=== PATIENT | female | born 1960 | race Caucasian/White ===

== ENCOUNTER 2018-08-23 17:25 | Emergency (ER) | payer MEDICARE, MEDICAID ==
[~2018-08-23] VITALS: Ht 160 cm; Wt 99.0 kg
[~2018-08-23 17:25] MED LIST: ALBU8.5H8 IH; ASPI-529; BIMA2.5D EACHEYE; BUPR150T16 PO; CLON0.2T PO; DEXL60CA3 PO; FURO80TA87 PO; GABA-532 PO; GLUC1KIT IM; LABE200T5 PO; LANTUS SQ; LEVA15HF4 INH; LEVO5TAB13 PO; METO-292 PO; MOME17SP BOTHNARES; NIFE60TA69 PO; ROSU20TA PO
[2018-08-23 17:52] VITALS: BP 136/79
== END 2018-08-23 19:07 | disposition home or self-care (01) ==
LOC: ER 17:25
DX: S76.811A Strain of other specified muscles, fascia and tendons at thigh level, right thigh, initial encounter (principal); G43.909 Migraine, unspecified, not intractable, without status migrainosus; I12.9 Hypertensive chronic kidney disease with stage 1 through stage 4 chronic kidney disease, or unspecified chronic kidney disease; E11.22 Type 2 diabetes mellitus with diabetic chronic kidney disease; N18.9 Chronic kidney disease, unspecified; Z88.0 Allergy status to penicillin; Z79.82 Long term (current) use of aspirin; Z79.4 Long term (current) use of insulin; Z79.899 Other long term (current) drug therapy; X58.XXXA Exposure to other specified factors, initial encounter; Y93.89 Activity, other specified; Y92.89 Other specified places as the place of occurrence of the external cause; Y99.8 Other external cause status
CPT/HCPCS: 73502; 99284

== ENCOUNTER 2018-10-17 08:35 | Day surgery (SDC) | payer MEDICARE, MEDICAID ==
[~2018-10-17] VITALS: Ht 160 cm; Wt 101.3 kg
[2018-10-17] MEDS ORDERED: normal saline 1000ml 1,000 ML IV SCH (09:20)
[2018-10-17 09:46] LABS: BASOPHILS # (AUTO) 0.1 X10'3 (0-0.2); BASOPHILS % (AUTO) 0.6 % (0-1); EOSINOPHILS # (AUTO) 0.1 X10'3 (0-0.9); EOSINOPHILS % (AUTO) 1.7 % (0-6); HEMATOCRIT 36.3 % (35.0-45.0); HEMOGLOBIN 11.7 g/dl (12.0-16.0); LYMPHOCYTES # (AUTO) 2.2 X10'3 (1.1-4.8); LYMPHOCYTES % (AUTO) 26.1 % (21-51); MEAN CORPUSCULAR HEMOGLOBIN 28.4 PG (27.0-31.0); MEAN CORPUSCULAR HGB CONC 32.3 % (33.0-36.5); MEAN CORPUSCULAR VOLUME 87.8 FL (78-98); MEAN PLATELET VOLUME 11.4 FL (7.4-10.4); MONOCYTES # (AUTO) 1.1 X10'3 (0-0.9); MONOCYTES % (AUTO) 13.4 % (2-12); NEUTROPHILS % (AUTO) 58.2 % (42-75); PLATELET COUNT 161 X10'3 (140-440); RED BLOOD COUNT 4.13 X10'6 (4.20-5.60); RED CELL DISTRIBUTION WIDTH 16.8 % (11.5-14.5); WHITE BLOOD COUNT 8.5 X10'3 (4.5-11.0)
[2018-10-17 09:55] LABS: ALBUMIN 3.1 G/DL (3.4-5.0); ANION GAP 12 (8-16); BLOOD UREA NITROGEN 48 MG/DL (7-18); BUN/CREATININE RATIO 6.9 (6.6-38.0); CALCIUM 9.5 MG/DL (8.5-10.1); CHLORIDE 93 MMOL/L (99-107); CREATININE 6.94 MG/DL (0.40-0.90); GLUCOSE 357 MG/DL (70-104); POTASSIUM 3.6 MMOL/L (3.5-5.1); SODIUM 133 MMOL/L (135-145); TOTAL CARBON DIOXIDE 27.8 MMOL/L (24-32); eGFR 6 ML/MIN
[2018-10-17 10:08] LABS: INR 1.1 INR; PROTHROMBIN TIME 10.7 SECONDS (9.0-12.0)
[2018-10-17 10:13] LABS: LARGE PLATELETS FEW; PLATELET ESTIMATE NORMAL
[2018-10-17] MEDS ORDERED: BRIM5DRO16 LEFTEYE (10:16)
[2018-10-17] MEDS ORDERED: HYDR-4353 PO (10:16)
[2018-10-17] MEDS ORDERED: FOLI0.4T2 PO (10:16)
[2018-10-17] MEDS ORDERED: LIDO5CRE2 TP (10:16)
[2018-10-17] MEDS ORDERED: LINA5TAB4 PO (10:16)
[2018-10-17] MEDS ORDERED: CLOP75TA35 PO (10:16)
[2018-10-17] MEDS ORDERED: INSU100C4 SQ (10:16)
[2018-10-17] MEDS ORDERED: ACET325C3 PO (10:16)
[2018-10-17] MEDS ORDERED: PHO667C PO (10:16)
[2018-10-17] MEDS ORDERED: INSU100I31 SQ (10:16)
[2018-10-17] MEDS ORDERED: VITA-268 PO (10:16)
[2018-10-17] MEDS ORDERED: iohexol 300mg/ml 100ml inj. ONE (10:20)
[2018-10-17] MEDS ORDERED: LIDOcaine 1%/PF 5ML 10 MG/ML VIAL ONE (10:20)
[2018-10-17] MEDS ORDERED: fentaNYL/PF 50MCG/1 ML 2ML syringe IV PRN (10:40)
[2018-10-17] MEDS ORDERED: LIDOcaine 1%/PF 5ML 10 MG/ML VIAL SQ ONE (10:40)
[2018-10-17] MEDS ORDERED: midazolam 2 mg/2 ml injection IV PRN (10:40)
[2018-10-17] MEDS ORDERED: heparin 1,000 UNITS/NS 500ml 500 ML ICATH ONE (10:40)
[2018-10-17] MEDS ORDERED: heparin 1,000 UNITS/NS 500ml 500 ML ONE (10:43)
[2018-10-17] MEDS ORDERED: midazolam 2 mg/2 ml injection ONE (10:43)
[2018-10-17] MEDS ORDERED: fentaNYL/PF 50MCG/1 ML 2ML syringe ONE (10:43)
[2018-10-17 11:45] VITALS: BP 129/58
[2018-10-17 12:00] VITALS: BP 112/62
[2018-10-17 12:14] VITALS: BP 119/61
[2018-10-17 12:29] VITALS: BP 115/52
== END 2018-10-17 12:40 | disposition home or self-care (01) ==
LOC: SSTAY O 08:35
PROVIDERS: ATTEND Radiology Vascular & Interventional Radiology
DX: T82.858A Stenosis of other vascular prosthetic devices, implants and grafts, initial encounter (principal); Y83.2 Surgical operation with anastomosis, bypass or graft as the cause of abnormal reaction of the patient, or of later complication, without mention of misadventure at the time of the procedure; Y92.89 Other specified places as the place of occurrence of the external cause; E11.22 Type 2 diabetes mellitus with diabetic chronic kidney disease; I12.0 Hypertensive chronic kidney disease with stage 5 chronic kidney disease or end stage renal disease; N18.6 End stage renal disease; F32.9 Major depressive disorder, single episode, unspecified; G43.909 Migraine, unspecified, not intractable, without status migrainosus; E66.9 Obesity, unspecified; E78.5 Hyperlipidemia, unspecified; G47.33 Obstructive sleep apnea (adult) (pediatric); K21.9 Gastro-esophageal reflux disease without esophagitis; M19.90 Unspecified osteoarthritis, unspecified site; F41.8 Other specified anxiety disorders; Z87.891 Personal history of nicotine dependence; Z79.82 Long term (current) use of aspirin; Z68.39 Body mass index [BMI] 39.0-39.9, adult; Z86.19 Personal history of other infectious and parasitic diseases; Z79.891 Long term (current) use of opiate analgesic; Z79.4 Long term (current) use of insulin; Z86.79 Personal history of other diseases of the circulatory system; Z86.69 Personal history of other diseases of the nervous system and sense organs; Z98.51 Tubal ligation status; Z90.89 Acquired absence of other organs; Z99.2 Dependence on renal dialysis; Z88.0 Allergy status to penicillin; Z88.8 Allergy status to other drugs, medicaments and biological substances; Z98.890 Other specified postprocedural states; Z79.899 Other long term (current) drug therapy; Z82.49 Family history of ischemic heart disease and other diseases of the circulatory system; Z80.9 Family history of malignant neoplasm, unspecified; Z83.3 Family history of diabetes mellitus
CPT/HCPCS: 36415; 36902; 80048; 82948; 85025; 85610; 99152; 99153; J1644; J2001; J2250; J3010; Q9967; C1725; C1769; C1894

== ENCOUNTER 2019-02-06 14:04 | Emergency (ER) | payer MEDICARE, MEDICAID ==
[~2019-02-06] VITALS: Ht 160 cm; Wt 100.5 kg
[~2019-02-06 14:04] MED LIST changes: +ACET325C3 PO; +BRIM5DRO16 LEFTEYE; -CLON0.2T PO; +CLOP75TA35 PO; +FOLI0.4T2 PO; +HYDR-4353 PO; +INSU100C4 SQ; +INSU100I31 SQ; -LANTUS SQ; +LIDO5CRE2 TP; +LINA5TAB4 PO; +PHO667C PO; -ROSU20TA PO; +ROSU20TA2 PO; +VITA-268 PO
[2019-02-06] MEDS ORDERED: proCHLORperazine 10 MG/2 ml inj IV ONE (14:40)
[2019-02-06 14:43] LABS: BASOPHILS % (AUTO) 0.2 % (0-1); EOSINOPHILS # (AUTO) 0.2 X10'3 (0-0.9); EOSINOPHILS % (AUTO) 1.9 % (0-6); HEMOGLOBIN 12.5 g/dl (12.0-16.0); LYMPHOCYTES # (AUTO) 0.8 X10'3 (1.1-4.8); LYMPHOCYTES % (AUTO) 6.6 % (21-51); MEAN CORPUSCULAR HEMOGLOBIN 30.4 PG (27.0-31.0); MEAN CORPUSCULAR HGB CONC 32.7 g/dL (33.0-36.5); MEAN CORPUSCULAR VOLUME 92.8 FL (78-98); MEAN PLATELET VOLUME 11.1 FL (7.4-10.4); MONOCYTES # (AUTO) 1.7 X10'3 (0-0.9); MONOCYTES % (AUTO) 13.8 % (2-12); NEUTROPHILS # (AUTO) 9.4 X10'3 (1.8-7.7); NEUTROPHILS % (AUTO) 77.5 % (42-75); PLATELET COUNT 211 X10'3 (140-440); RED CELL DISTRIBUTION WIDTH 15.8 % (11.5-14.5); WHITE BLOOD COUNT 12.1 X10'3 (4.5-11.0)
[2019-02-06 14:47] LABS: PROTHROMBIN TIME 10.4 SECONDS (9.0-12.0)
[2019-02-06 14:49] LABS: ALANINE AMINOTRANSFERASE 40 U/L (12-78); ALBUMIN/GLOBULIN RATIO 0.6 (1.1-1.5); ALKALINE PHOSPHATASE 157 IU/L (46-116); ANION GAP 5 (8-16); ASPARTATE AMINO TRANSFERASE 36 U/L (10-37); BILIRUBIN,TOTAL 0.5 MG/DL (0.1-1.0); BLOOD UREA NITROGEN 16 MG/DL (7-18); BUN/CREATININE RATIO 4.1 (6.6-38.0); CALCIUM 9.7 MG/DL (8.5-10.1); CHLORIDE 96 MMOL/L (99-107); CREATININE 3.89 MG/DL (0.40-0.90); GLUCOSE 169 MG/DL (70-104); POTASSIUM 4.2 MMOL/L (3.5-5.1); SODIUM 135 MMOL/L (135-145); TOTAL CARBON DIOXIDE 34.5 MMOL/L (24-32); TOTAL PROTEIN 7.8 G/DL (6.4-8.2); eGFR 12 ML/MIN
--- NOTE | 2019-02-06 14:49 | NUR ---
PT WALKED TO BATHROOM, UNABLE TO PROVIDE URINE SAMPLE AT THIS TIME
[2019-02-06 14:52] VITALS: BP 145/72
[2019-02-06] MEDS ORDERED: PROC25SU31 RC (15:00)
[2019-02-06] MEDS ORDERED: ONDA4TAB6 PO (15:00)
--- NOTE | 2019-02-06 15:13 | NUR ---
PT MEDICATED PER ORDERS, GAVE WATER TO SIP ON, WILL EVALUATE SHORTLY.
--- NOTE | 2019-02-06 15:17 | NUR ---
NOTIFIED CHRIS RAMOS ABOUT PT RASH AND ITCHINESS, VERBAL ORDER FOR 25 MG BENADRYL
[2019-02-06 15:19] LABS: LARGE PLATELETS FEW; PLATELET ESTIMATE NORMAL
[2019-02-06] MEDS ORDERED: diphenhydrAMINE 50 mg/ml inj IV ONE (15:20)
== END 2019-02-06 16:06 | disposition home or self-care (01) ==
LOC: ER 14:05
DX: K52.9 Noninfective gastroenteritis and colitis, unspecified (principal); I12.0 Hypertensive chronic kidney disease with stage 5 chronic kidney disease or end stage renal disease; E11.22 Type 2 diabetes mellitus with diabetic chronic kidney disease; N18.6 End stage renal disease; G43.909 Migraine, unspecified, not intractable, without status migrainosus; Z99.2 Dependence on renal dialysis; Z79.4 Long term (current) use of insulin; Z98.51 Tubal ligation status; Z88.0 Allergy status to penicillin; Z88.8 Allergy status to other drugs, medicaments and biological substances
CPT/HCPCS: 36415; 80053; 85025; 85610; 96374; 96375; 99283; J0780; J1200

== ENCOUNTER 2020-01-23 08:23 | Day surgery (SDC) | payer MEDICARE, MEDICAID ==
[2020-01-23] VITALS (8 sets, daily range): BP systolic 125–158; BP diastolic 62–89
[~2020-01-23] VITALS: Ht 160 cm; Wt 95.4 kg
[~2020-01-23 08:23] MED LIST changes: +NIFE-33 PO; -NIFE60TA69 PO; +ONDA4TAB6 PO
[2020-01-23 09:05] LABS: BASOPHILS # (AUTO) 0.1 X10'3 (0-0.2); BASOPHILS % (AUTO) 0.4 % (0-1); EOSINOPHILS # (AUTO) 0.2 X10'3 (0-0.9); EOSINOPHILS % (AUTO) 1.2 % (0-6); HEMATOCRIT 38.9 % (35.0-45.0); HEMOGLOBIN 12.5 g/dl (12.0-16.0); LYMPHOCYTES # (AUTO) 2.1 X10'3 (1.1-4.8); LYMPHOCYTES % (AUTO) 15.6 % (21-51); MEAN CORPUSCULAR HEMOGLOBIN 30.2 PG (27.0-31.0); MEAN CORPUSCULAR HGB CONC 32.2 g/dL (33.0-36.5); MEAN CORPUSCULAR VOLUME 93.6 FL (78-98); MONOCYTES # (AUTO) 1.3 X10'3 (0-0.9); MONOCYTES % (AUTO) 9.4 % (2-12); NEUTROPHILS # (AUTO) 9.8 X10'3 (1.8-7.7); NEUTROPHILS % (AUTO) 73.4 % (42-75); PLATELET COUNT 253 X10'3 (140-440); RED BLOOD COUNT 4.15 X10'6 (4.20-5.60); RED CELL DISTRIBUTION WIDTH 17.2 % (11.5-14.5); WHITE BLOOD COUNT 13.3 X10'3 (4.5-11.0)
[2020-01-23] MEDS ORDERED: normal saline 1000ml 1,000 ML IV PRN (09:05)
[2020-01-23 09:44] LABS: ALBUMIN 3.5 G/DL (3.4-5.0); ANION GAP 7 (8-16); BLOOD UREA NITROGEN 56 MG/DL (7-18); BUN/CREATININE RATIO 7.4 (6.6-38.0); CALCIUM 9.8 MG/DL (8.5-10.1); CHLORIDE 92 MMOL/L (99-107); CREATININE 7.61 MG/DL (0.40-0.90); GLUCOSE 351 MG/DL (70-104); POTASSIUM 4.8 MMOL/L (3.5-5.1); SODIUM 125 MMOL/L (135-145); TOTAL CARBON DIOXIDE 25.6 MMOL/L (24-32); eGFR 5 ML/MIN
[2020-01-23] MEDS ORDERED: iohexol 300mg/ml 100ml inj. ONE (09:56)
[2020-01-23] MEDS ORDERED: heparin 1,000 UNITS/NS 500ml 500 ML ONE (09:56)
[2020-01-23] MEDS ORDERED: LIDOcaine 1%/PF 5ML 10 MG/ML VIAL ONE (09:56)
[2020-01-23] MEDS ORDERED: LACT1CAP65 PO (09:58)
[2020-01-23] MEDS ORDERED: midazolam 2 mg/2 ml injection ONE (09:59)
[2020-01-23] MEDS ORDERED: fentaNYL/PF 50MCG/1 ML 2ML syringe ONE (10:00)
[2020-01-23] MEDS ORDERED: heparin 1,000unit/ml 10ml vial 10 ML ONE (11:23)
== END 2020-01-23 14:50 | disposition home or self-care (01) ==
LOC: SSTAY O 08:23
PROVIDERS: ATTEND Radiology Diagnostic Radiology
DX: T82.868A Thrombosis due to vascular prosthetic devices, implants and grafts, initial encounter (principal); Y83.8 Other surgical procedures as the cause of abnormal reaction of the patient, or of later complication, without mention of misadventure at the time of the procedure; N18.9 Chronic kidney disease, unspecified; E11.22 Type 2 diabetes mellitus with diabetic chronic kidney disease; Z88.0 Allergy status to penicillin; Z88.8 Allergy status to other drugs, medicaments and biological substances; Z79.899 Other long term (current) drug therapy; Z83.3 Family history of diabetes mellitus; Z82.49 Family history of ischemic heart disease and other diseases of the circulatory system
CPT/HCPCS: 36415; 36558; 76882; 76937; 77001; 80048; 85025; 85610; 99152; 99153; C1750; C1769; C1894; J1644; J2250; J3010; J7030; Q9967; A9270

== ENCOUNTER 2020-01-23 15:58 | Emergency (ER) | payer MEDICARE, MEDICAID ==
[~2020-01-23] VITALS: Ht 160 cm; Wt 95.0 kg
[~2020-01-23 15:58] MED LIST changes: +LACT1CAP65 PO; +LIDOcaine 1% W/epiNEPHrine 1:100,000 20ml vial ONE
[2020-01-23 16:14] VITALS: BP 145/71
[2020-01-23] MEDS ORDERED: gelatin sponge, absorbable (Gelfoam-100 compressed) sponge TP ONE (16:40)
== END 2020-01-23 19:56 | disposition home or self-care (01) ==
LOC: ER 15:58
DX: L76.22 Postprocedural hemorrhage of skin and subcutaneous tissue following other procedure (principal); I12.0 Hypertensive chronic kidney disease with stage 5 chronic kidney disease or end stage renal disease; E11.22 Type 2 diabetes mellitus with diabetic chronic kidney disease; N18.6 End stage renal disease; Z99.2 Dependence on renal dialysis; F32.9 Major depressive disorder, single episode, unspecified; Z98.61 Coronary angioplasty status; Z98.51 Tubal ligation status; Z98.890 Other specified postprocedural states; Z88.0 Allergy status to penicillin; Z79.4 Long term (current) use of insulin; Z79.899 Other long term (current) drug therapy
CPT/HCPCS: 99282; 99283

== ENCOUNTER 2020-08-17 05:40 | Day surgery (SDC) | payer MEDICARE, MEDICAID ==
[2020-08-10 15:43] LABS: BASOPHILS % (AUTO) 0.5 % (0-1); EOSINOPHILS % (AUTO) 11.9 % (0-6); LYMPHOCYTES # (AUTO) 1.4 X10'3 (1.1-4.8); MEAN CORPUSCULAR HEMOGLOBIN 28.6 PG (27.0-31.0); MEAN CORPUSCULAR HGB CONC 31.5 g/dL (33.0-36.5); MEAN CORPUSCULAR VOLUME 90.8 FL (78-98); MEAN PLATELET VOLUME 10.9 FL (7.4-10.4); MONOCYTES # (AUTO) 1.1 X10'3 (0-0.9); MONOCYTES % (AUTO) 13.4 % (2-12); NEUTROPHILS # (AUTO) 4.6 X10'3 (1.8-7.7); NEUTROPHILS % (AUTO) 57.2 % (42-75); PRE OP HEMATOCRIT 29.8 % (35.0-45.0); PRE OP PLATELET COUNT 149 X10'3 (140-440); RED BLOOD COUNT 3.28 X10'6 (4.20-5.60); RED CELL DISTRIBUTION WIDTH 19.1 % (11.5-14.5)
[2020-08-10 15:45] LABS: PRE OP HEMOGLOBIN 9.4 g/dL (12.0-16.0)
[2020-08-10 16:01] LABS: ALBUMIN/GLOBULIN RATIO 0.7 (1.1-1.5); ALKALINE PHOSPHATASE 143 IU/L (46-116); BLOOD UREA NITROGEN 16 MG/DL (7-18); CALCIUM 9.2 MG/DL (8.5-10.1); CHLORIDE 100 MMOL/L (99-107); CREATININE 4.05 MG/DL (0.40-0.90); PRE OP ALT 40 U/L (30-65); PRE OP ANION GAP 3 (8-16); PRE OP AST 25 U/L (10-37); PRE OP BILIRUB, TOTAL 0.4 MG/DL (0.0-1.0); PRE OP POTASSIUM 3.4 MMOL/L (3.4-5.1); PRE OP SODIUM 138 MMOL/L (135-145); TOTAL PROTEIN 7.1 G/DL (6.4-8.2); eGFR 11 ML/MIN
[2020-08-10 16:03] LABS: PRE OP GLUCOSE 213 MG/DL (70-104)
[2020-08-10 18:11] LABS: ANISOCYTOSIS 2+; LARGE PLATELETS MODERATE; PLATELET ESTIMATE NORMAL
[2020-08-10 18:12] LABS: POLYCHROMASIA FEW
[2020-08-10 18:13] LABS: STOMATOCYTES 1+
[~2020-08-17] VITALS: Ht 160 cm; Wt 95.3 kg
[2020-08-17] VITALS (14 sets, daily range): BP systolic 120–184; BP diastolic 72–97
[~2020-08-17 05:40] MED LIST changes: +APIX2.5T PO; -ASPI-529; +ASPI-529 PO; -CLOP75TA35 PO; +DOCUMENT DATE & TIME OF BETA-BLOCKER PO ONE; -LACT1CAP65 PO; -LIDOcaine 1% W/epiNEPHrine 1:100,000 20ml vial ONE; -ONDA4TAB6 PO; +PNV1TABL75 PO; +famotidine 10mg tablet PO ONE; +ringers solution, lacted 1,000 ML IV SCH
[2020-08-17] MEDS ORDERED: ceFAZolin 2gm in dextrose, iso 50 ML IV ONE (06:00)
[2020-08-17] MEDS ORDERED: BUPIVAcaine/PF 2.5 mg/ml (0.25%) 30ml vial ONE (07:08)
[2020-08-17] MEDS ORDERED: insulin regular, human 10 units/0.1 ml syringe ONE (08:03)
[2020-08-17] MEDS ORDERED: insulin regular, human U-100 3ml vial - multi-dose IV ONE (08:05)
[2020-08-17] MEDS ORDERED: insulin regular, human 10 units/0.1 ml syringe SQ ONE (08:05)
[2020-08-17] MEDS ORDERED: insulin regular, human U-100 3ml vial - multi-dose SQ ONE (08:10)
[2020-08-17] MEDS ORDERED: hydrALAZINE 20mg/ml inj. IV PRN (08:20)
[2020-08-17] MEDS ORDERED: proCHLORperazine 10 MG/2 ml inj IV PRN (08:20)
[2020-08-17] MEDS ORDERED: normal saline 1000ml 1,000 ML IV ONE (08:20)
[2020-08-17] MEDS ORDERED: morphine 4 MG/ML inj SYRINge IV PRN (08:20)
[2020-08-17] MEDS ORDERED: ondansetron/PF 4mg/2ml inj IV PRN (08:20)
[2020-08-17] MEDS ORDERED: labetalol 20mg/4ml (5mg/ml) syringe IV PRN (08:20)
[2020-08-17] MEDS ORDERED: acetaminophen 1,000mg/100ml IV 100 ML IV PRN (08:20)
[2020-08-17] MEDS ORDERED: fentaNYL/PF 50MCG/1 ML 2ML syringe IV PRN ×2 (08:20)
[2020-08-17] MEDS ORDERED: morphine 2 MG/ML inj. syringe IV PRN (08:20)
[2020-08-17] MEDS ORDERED: sevoflurane 250ml liquid IH ONE (08:21)
[2020-08-17] MEDS ORDERED: midazolam 2 mg/2 ml injection ONE (08:27)
[2020-08-17] MEDS ORDERED: fentaNYL/PF 50MCG/1 ML 2ML syringe ONE (08:27)
[2020-08-17] MEDS ORDERED: LIDOcaine 2% (20mg/ml) 5ml vial ONE (08:38)
[2020-08-17] MEDS ORDERED: propofol inj 20 ML IV ONE (08:38)
[2020-08-17] MEDS ORDERED: ondansetron/PF 4mg/2ml inj ONE (08:39)
--- NOTE | 2020-08-17 09:06 | NUR ---
Received from OR via [facility], accompanied by Anesthesiologist DR BOWIE and report given by Anesthesiologist. PT VERY DROWSY, NO S/S OF DISTRESS/DISCOMFORT, LEFT HAND W/BIAS WRAP COVERING CDI, FINGERS PWD, STITCH SEPARATOR 1-2 SECONDS. Addendum: 08/17/20 at 0923 by Lynette Ahn RN Amended: Links added.
--- NOTE | 2020-08-17 12:16 | NUR ---
PT AWAKE AND ABLE TO AMBULATE SAFELY, D/C INSTRUCTIONS GIVEN AND GONE OVER W/PT WHO VERBALIZED UNDERSTANDING, PT D/CD TO HOME VIA W/C TO GERTRUDIS LAINEZ PERSONAL W/O INCIDENT. Addendum: 08/17/20 at 1251 by Lynette Ahn RN Amended: Links added.
== END 2020-08-17 12:16 | disposition home or self-care (01) ==
LOC: PAS 05:40
PROVIDERS: ATTEND Orthopaedic Surgery Hand Surgery
DX: G56.02 Carpal tunnel syndrome, left upper limb (principal); I10 Essential (primary) hypertension; J45.909 Unspecified asthma, uncomplicated; F32.9 Major depressive disorder, single episode, unspecified; K21.9 Gastro-esophageal reflux disease without esophagitis; E11.9 Type 2 diabetes mellitus without complications; G47.33 Obstructive sleep apnea (adult) (pediatric); E66.9 Obesity, unspecified; Z68.37 Body mass index [BMI] 37.0-37.9, adult; Z86.19 Personal history of other infectious and parasitic diseases; Z88.0 Allergy status to penicillin; Z99.2 Dependence on renal dialysis; Z79.4 Long term (current) use of insulin; Z79.01 Long term (current) use of anticoagulants; Z79.899 Other long term (current) drug therapy; Z20.828 Contact with and (suspected) exposure to other viral communicable diseases; Z87.891 Personal history of nicotine dependence; Z98.51 Tubal ligation status; Z98.890 Other specified postprocedural states; Z95.820 Peripheral vascular angioplasty status with implants and grafts; Z72.89 Other problems related to lifestyle
CPT/HCPCS: 29848; 36415; 76937; 80053; 82948; 85025; 87635; J1815; J2001; J2250; J2405; J2704; J3010; J3490; 85008; A4215; A7000; J7120

== ENCOUNTER 2020-11-27 11:23 | Emergency (ER) | payer MEDICARE, MEDICAID ==
[~2020-11-27] VITALS: Ht 160 cm; Wt 101.4 kg
[~2020-11-27 11:23] MED LIST changes: -DOCUMENT DATE & TIME OF BETA-BLOCKER PO ONE; -famotidine 10mg tablet PO ONE; -ringers solution, lacted 1,000 ML IV SCH
[2020-11-27 12:59] LABS: BASOPHILS % (AUTO) 0.4 % (0-1); EOSINOPHILS # (AUTO) 0.1 X10'3 (0-0.9); EOSINOPHILS % (AUTO) 0.9 % (0-6); HEMOGLOBIN 9.8 g/dl (12.0-16.0); LYMPHOCYTES # (AUTO) 1.1 X10'3 (1.1-4.8); LYMPHOCYTES % (AUTO) 10.8 % (21-51); MEAN CORPUSCULAR HEMOGLOBIN 28.3 PG (27.0-31.0); MEAN CORPUSCULAR HGB CONC 31.8 g/dL (33.0-36.5); MEAN PLATELET VOLUME 11.2 FL (7.4-10.4); MONOCYTES % (AUTO) 10.3 % (2-12); NEUTROPHILS # (AUTO) 7.6 X10'3 (1.8-7.7); NEUTROPHILS % (AUTO) 77.6 % (42-75); PLATELET COUNT 142 X10'3 (140-440); RED BLOOD COUNT 3.48 X10'6 (4.20-5.60); RED CELL DISTRIBUTION WIDTH 18.4 % (11.5-14.5); WHITE BLOOD COUNT 9.8 X10'3 (4.5-11.0)
[2020-11-27 13:03] VITALS: BP 147/68
[2020-11-27 13:12] LABS: ALANINE AMINOTRANSFERASE 38 U/L (12-78); ALBUMIN 2.8 G/DL (3.4-5.0); ALBUMIN/GLOBULIN RATIO 0.8 (1.1-1.5); ALKALINE PHOSPHATASE 154 IU/L (46-116); ANION GAP 8 (8-16); ASPARTATE AMINO TRANSFERASE 19 U/L (10-37); BILIRUBIN,TOTAL 0.5 MG/DL (0.1-1.0); BLOOD UREA NITROGEN 50 MG/DL (7-18); BUN/CREATININE RATIO 5.9 (6.6-38.0); CHLORIDE 95 MMOL/L (99-107); CREATININE 8.54 MG/DL (0.40-0.90); GLUCOSE 309 MG/DL (70-104); POTASSIUM 5.4 MMOL/L (3.5-5.1); SODIUM 130 MMOL/L (135-145); TOTAL CARBON DIOXIDE 27.3 MMOL/L (24-32); TOTAL PROTEIN 6.4 G/DL (6.4-8.2); eGFR 5 ML/MIN
[2020-11-27 13:59] LABS: ANISOCYTOSIS 2+; LARGE PLATELETS FEW; PLATELET ESTIMATE NORMAL; POLYCHROMASIA 1+
== END 2020-11-27 13:51 | disposition home or self-care (01) ==
LOC: ER 11:24
DX: R06.02 Shortness of breath (principal); Z20.822 Contact with and (suspected) exposure to COVID-19; I12.0 Hypertensive chronic kidney disease with stage 5 chronic kidney disease or end stage renal disease; E11.22 Type 2 diabetes mellitus with diabetic chronic kidney disease; N18.6 End stage renal disease; G43.909 Migraine, unspecified, not intractable, without status migrainosus; F32.9 Major depressive disorder, single episode, unspecified; Z99.2 Dependence on renal dialysis; Z98.51 Tubal ligation status; Z98.890 Other specified postprocedural states; Z88.0 Allergy status to penicillin; Z88.8 Allergy status to other drugs, medicaments and biological substances; Z79.82 Long term (current) use of aspirin; Z79.4 Long term (current) use of insulin; Z79.899 Other long term (current) drug therapy
CPT/HCPCS: 36415; 80053; 85008; 85025; 87635; 93005; 99284

== ENCOUNTER 2020-12-04 05:33 | Day surgery (SDC) | payer MEDICARE, MEDICAID ==
[~2020-12-04] VITALS: Ht 157.5 cm; Wt 101.2 kg
[2020-12-04] VITALS (7 sets, daily range): BP systolic 96–181; BP diastolic 57–83
[~2020-12-04 05:33] MED LIST changes: -ALBU8.5H8 IH; +DOCUMENT DATE & TIME OF BETA-BLOCKER PO ONE; -FOLI0.4T2 PO; +FOLI0.4T6 PO; -LEVA15HF4 INH; -LEVO5TAB13 PO; -LIDO5CRE2 TP; -METO-292 PO; -MOME17SP BOTHNARES; -PNV1TABL75 PO; -ROSU20TA2 PO; -VITA-268 PO; +clindamycin-Cleocin 900mg/D5W 50 ML IV ONE; +famotidine 20mg tablet PO ONE; +normal saline 1000ml 1,000 ML IV SCH; +ringers solution, lacted 1,000 ML IV SCH
[2020-12-04 06:32] LABS: ISTAT CREATININE 6.1 mg/dL (0.6-1.1); ISTAT HGB 13.3 g/dl (12.0-16.0); ISTAT IONIZED CALCIUM 1.27 mmol/L (1.03-1.32); ISTAT K 4.4 mmol/L (3.5-5.1); POC BUN/CREATININE RATIO 5.4 (6.6-38.0)
[2020-12-04] MEDS ORDERED: dextrose 50%-water 50ml dispensing syringe IV ONE ×2 (06:41)
--- NOTE | 2020-12-04 07:30 | NUR ---
(639) GLUCOSE 49 VIA ISTAT. PT STATES FEEL TIRED AND LIKE HER BLOOD SUGAR IS LOW. PT ALERT AND ORIENTED, ANSWERS QUESTIONS APPROPRIATELY. DR GALLEGOS CALLED, DEXTROSE 50% IV ORDERED AND GIVEN. (704) GLUCOSE 156. PT STATES SHE FEELS BETTER, UP AMB TO BR WITH STEADY GAIT. (729) DR GALLEGOS AT THE BEDSIDE, AWARE OF ISTAT RESULTS AND CURRENT GLUCOSE RESULTS. OKAY TO HAVE PIV IN LEFT HAND PER DR GALLEGOS WITH DIALYSIS AV FISTULA IN LEFT UPPER ARM. Addendum: 12/04/20 at 0803 by Farhana Gilbert RN Amended: Links added.
[2020-12-04] MEDS ORDERED: fentaNYL/PF 50MCG/1 ML 2ML syringe ONE (08:03)
[2020-12-04] MEDS ORDERED: midazolam 1 mg/ML 2ml injection ONE (08:03)
[2020-12-04] MEDS ORDERED: morphine 4 MG/ML inj SYRINge IV PRN (08:10)
[2020-12-04] MEDS ORDERED: proCHLORperazine 10 MG/2 ml inj IV PRN (08:10)
[2020-12-04] MEDS ORDERED: meperidine/PF 25mg/ml syringe IV PRN ×3 (08:10)
[2020-12-04] MEDS ORDERED: morphine 2 MG/ML inj. syringe IV PRN (08:10)
[2020-12-04] MEDS ORDERED: ringers solution, lacted 1,000 ML IV SCH (08:10)
[2020-12-04] MEDS ORDERED: ondansetron/PF 4mg/2ml inj IV PRN (08:10)
[2020-12-04] MEDS ORDERED: BUPIVAcaine/PF 2.5mg/ml (0.25%) 10ml vial ONE (08:13)
--- NOTE | 2020-12-04 09:07 | NUR ---
Received from OR via [facility], accompanied by Anesthesiologist DR. GALLEGOS and report given by Anesthesiologist. PATIENT IS LAYING ON GURNEY, VVS, RESPONDS TO VERBAL STIMULI, PIV ON LEFT HAND, NO IV FLUID RUNNING AT THIS TIME, DRESSING ON RIGHT HAND AND WRIST WITH NO DRAINAGE, GOOD CAP REFILL ON RIGHT FINGERS,PATIENT IS NOT MOVING RIGHT FINGERS WHEN ASKED AT THIS TIME. Addendum: 12/04/20 at 0923 by Khoa Rao RN, RN Amended: Links added.
[2020-12-04 09:09] LABS: ALBUMIN 3.2 G/DL (3.4-5.0); ALBUMIN/GLOBULIN RATIO 0.8 (1.1-1.5); ALKALINE PHOSPHATASE 163 IU/L (46-116); BLOOD UREA NITROGEN 27 MG/DL (7-18); BUN/CREATININE RATIO 4.4 (6.6-38.0); CALCIUM 9.6 MG/DL (8.5-10.1); CHLORIDE 98 MMOL/L (99-107); PRE OP ALT 38 U/L (30-65); PRE OP ANION GAP 15 (8-16); PRE OP BILIRUB, TOTAL 0.5 MG/DL (0.0-1.0); PRE OP SODIUM 139 MMOL/L (135-145); TOTAL CARBON DIOXIDE 25.7 MMOL/L (24-32); TOTAL PROTEIN 7.4 G/DL (6.4-8.2); eGFR 7 ML/MIN
[2020-12-04 09:11] LABS: PRE OP GLUCOSE 54 MG/DL (70-104)
[2020-12-04 09:13] LABS: PRE OP AST 46 U/L (10-37); PRE OP POTASSIUM 4.5 MMOL/L (3.4-5.1)
--- NOTE | 2020-12-04 09:54 | NUR ---
101 BLOOD GLUCOSE IN RR Addendum: 12/04/20 at 0955 by Khoa Rao RN RN Amended: Links added.
--- NOTE | 2020-12-04 10:04 | NUR ---
PATIENT VERBALIZED UNDERSTANDING, OPPORTUNITY TO ASK QUESTIONS GIVEN AND PATIENT COMFORTABLE WITH DC. IV TAKEN OUT WITHOUT COMPLICATION. PATIENT HAS MET ALL DC CRITERIA FOR DC HOME. VSS. I HAVE REVIEWED D/C INSTRUCTIONS WITH PATIENT. TAKEN OUT VIA WHEELCHAIR WHERE PATIENT WAS TAKEN HOME WITH ALL BELONGINGS. FAMILY GAVE PATIENT TRANSPORT HOME. BG IS 101 PRIOR TO DISCHARGE, MD NOTIFIED, PATIENT HAS MILD NAUSEA, SALTINE CRACKERS GIVEN FOR NAUSEA, PATIENT STATES THAT IT IS HELPING WITH NAUSEA, PATIENT IS ABLE TO MOVE HER RIGHT FINGERS WITH GOOD CAP REFILL ON RIGHT FINGERS, DRESSING ON RIGHT HAND CDI, NO DRAINAGE, EDUCATION FOR USING CPAP FOR 24 HOURS GIVEN TO PATIENT, PATIENT VERBALIZED UNDERSTANDING. PATIENT DENIES PAIN AT DISCHARGE. Addendum: 12/04/20 at 1016 by Khoa Rao RN RN Amended: Links added.
--- NOTE | 2020-12-04 10:13 | NUR ---
SPOKE WITH PATIENT AND BOYFRIEND ABOUT USE OF CPAP FOR 24 HOURS UNLESS EATING OR WALKING, BOTH AGREED TO COMPLY WITH THIS REQUEST. Addendum: 12/04/20 at 1014 by Khoa Rao RN, RN Amended: Links added.
== END 2020-12-04 10:06 | disposition home or self-care (01) ==
LOC: PAS 05:33
PROVIDERS: ATTEND Orthopaedic Surgery Hand Surgery
DX: G56.01 Carpal tunnel syndrome, right upper limb (principal); I12.0 Hypertensive chronic kidney disease with stage 5 chronic kidney disease or end stage renal disease; E11.22 Type 2 diabetes mellitus with diabetic chronic kidney disease; N18.6 End stage renal disease; Z99.2 Dependence on renal dialysis; J45.909 Unspecified asthma, uncomplicated; G43.909 Migraine, unspecified, not intractable, without status migrainosus; K21.9 Gastro-esophageal reflux disease without esophagitis; E66.01 Morbid (severe) obesity due to excess calories; Z86.14 Personal history of Methicillin resistant Staphylococcus aureus infection; Z87.891 Personal history of nicotine dependence; Z88.0 Allergy status to penicillin; Z79.899 Other long term (current) drug therapy; Z98.51 Tubal ligation status; Z98.890 Other specified postprocedural states
CPT/HCPCS: 29848; 80047; 80053; 82948; J2250; J3010; J3490; J7030; A4215; A7000

== ENCOUNTER 2021-01-20 11:39 | Day surgery (SDC) | payer MEDICARE, MEDICAID ==
[~2021-01-20] VITALS: Ht 160 cm; Wt 99.4 kg
[~2021-01-20 11:39] MED LIST changes: -DOCUMENT DATE & TIME OF BETA-BLOCKER PO ONE; -GLUC1KIT IM; -PHO667C PO; -clindamycin-Cleocin 900mg/D5W 50 ML IV ONE; -famotidine 20mg tablet PO ONE; -normal saline 1000ml 1,000 ML IV SCH; -ringers solution, lacted 1,000 ML IV SCH
[2021-01-20] MEDS ORDERED: normal saline 1000ml 1,000 ML IV SCH (12:05)
[2021-01-20 12:30] VITALS: BP 165/82
[2021-01-20] MEDS ORDERED: ROSU20TA31 PO (13:12)
[2021-01-20] MEDS ORDERED: LISI40TA13 PO (13:12)
[2021-01-20] MEDS ORDERED: MOME17SP BOTHNARES (13:12)
[2021-01-20] MEDS ORDERED: LEVA0.6319 NEB (13:12)
[2021-01-20] MEDS ORDERED: CLOP75TA15 PO (13:12)
[2021-01-20] MEDS ORDERED: SEVE800T8 PO (13:12)
[2021-01-20] MEDS ORDERED: LOPE2CAP PO (13:12)
[2021-01-20] MEDS ORDERED: FOLI0.8T3 PO (13:14)
[2021-01-20] MEDS ORDERED: FOLI0.8T7 PO (13:14)
[2021-01-20] MEDS ORDERED: LIDOcaine 1%/PF 5ML 10 MG/ML VIAL ONE (13:28)
[2021-01-20] MEDS ORDERED: heparin 1,000unit/ml 10ml vial 10 ML ONE (13:28)
[2021-01-20] MEDS ORDERED: fentaNYL/PF 50MCG/1 ML 2ML syringe ONE ×2 (13:36→13:48)
[2021-01-20 14:15] VITALS: BP 146/73
[2021-01-20] MEDS ORDERED: ondansetron/PF 4mg/2ml inj IM ONE (14:20)
--- NOTE | 2021-01-20 14:20 | NUR ---
Called Dr. Dykes for Zofran d/t pt vomiting. Order received for 1 time dose.
[2021-01-20] MEDS ORDERED: ondansetron/PF 4mg/2ml inj ONE (14:22)
== END 2021-01-20 15:15 | disposition home or self-care (01) ==
LOC: SSTAY O 11:39
PROVIDERS: ATTEND Radiology Vascular & Interventional Radiology
DX: T82.858A Stenosis of other vascular prosthetic devices, implants and grafts, initial encounter (principal); Z88.0 Allergy status to penicillin; Z79.899 Other long term (current) drug therapy; Z79.01 Long term (current) use of anticoagulants; Z79.4 Long term (current) use of insulin; Z82.49 Family history of ischemic heart disease and other diseases of the circulatory system; Z83.3 Family history of diabetes mellitus; Z80.8 Family history of malignant neoplasm of other organs or systems; Y83.2 Surgical operation with anastomosis, bypass or graft as the cause of abnormal reaction of the patient, or of later complication, without mention of misadventure at the time of the procedure; Y92.89 Other specified places as the place of occurrence of the external cause
CPT/HCPCS: 36415; 36558; 76937; 77001; 82948; 85610; 99152; C1750; C1894; J1644; J2405; J3010; A9270

== ENCOUNTER 2021-01-23 16:56 | Emergency (ER) | payer MEDICARE, MEDICAID ==
[~2021-01-23] VITALS: Ht 160 cm; Wt 94.5 kg
[~2021-01-23 16:56] MED LIST changes: -ACET325C3 PO; -ASPI-529 PO; -BIMA2.5D EACHEYE; -BRIM5DRO16 LEFTEYE; -BUPR150T16 PO; +CLOP75TA15 PO; -DEXL60CA3 PO; -FOLI0.4T6 PO; +FOLI0.8T3 PO; +FOLI0.8T7 PO; -FURO80TA87 PO; +LEVA0.6319 NEB; +LISI40TA13 PO; +LOPE2CAP PO; +MOME17SP BOTHNARES; +ROSU20TA31 PO; +SEVE800T8 PO
[2021-01-23 17:08] VITALS: BP 144/39
== END 2021-01-23 18:57 | disposition home or self-care (01) ==
LOC: ER 16:56
DX: T82.838A Hemorrhage due to vascular prosthetic devices, implants and grafts, initial encounter (principal); N18.9 Chronic kidney disease, unspecified; I12.0 Hypertensive chronic kidney disease with stage 5 chronic kidney disease or end stage renal disease; G43.909 Migraine, unspecified, not intractable, without status migrainosus; E11.22 Type 2 diabetes mellitus with diabetic chronic kidney disease; Z99.2 Dependence on renal dialysis; Z98.61 Coronary angioplasty status; Z88.0 Allergy status to penicillin; Z79.899 Other long term (current) drug therapy; Z79.4 Long term (current) use of insulin; Z79.82 Long term (current) use of aspirin; Y84.6 Urinary catheterization as the cause of abnormal reaction of the patient, or of later complication, without mention of misadventure at the time of the procedure; Y92.89 Other specified places as the place of occurrence of the external cause
CPT/HCPCS: 99281

== ENCOUNTER 2021-01-23 22:09 | Emergency (ER) | payer MEDICARE, MEDICAID ==
[~2021-01-23] VITALS: Ht 160 cm; Wt 95.0 kg
[2021-01-23 22:18] VITALS: BP 177/65
[2021-01-23] MEDS ORDERED: LIDOcaine 1% W/epiNEPHrine 1:100,000 20ml vial SQ ONE (23:10)
== END 2021-01-23 23:44 | disposition home or self-care (01) ==
LOC: ER 22:10
DX: T82.838A Hemorrhage due to vascular prosthetic devices, implants and grafts, initial encounter (principal); G43.909 Migraine, unspecified, not intractable, without status migrainosus; I12.0 Hypertensive chronic kidney disease with stage 5 chronic kidney disease or end stage renal disease; N18.9 Chronic kidney disease, unspecified; E11.22 Type 2 diabetes mellitus with diabetic chronic kidney disease; Z79.01 Long term (current) use of anticoagulants; Z98.61 Coronary angioplasty status; Z98.891 History of uterine scar from previous surgery; Z98.51 Tubal ligation status
CPT/HCPCS: 96372; 99281; 99283

== ENCOUNTER 2021-02-11 08:46 | Day surgery (SDC) | payer MEDICARE, MEDICAID ==
[~2021-02-11] VITALS: Ht 160 cm; Wt 97.6 kg
[2021-02-11] VITALS (9 sets, daily range): BP systolic 172–220; BP diastolic 66–96
[2021-02-11] MEDS ORDERED: normal saline 1000ml 1,000 ML IV PRN (09:30)
[2021-02-11] MEDS ORDERED: INSU100I31 SQ (10:11)
[2021-02-11] MEDS ORDERED: ALBU8.5H8 INH (10:11)
[2021-02-11] MEDS ORDERED: HYDR-3972 PO (10:11)
[2021-02-11] MEDS ORDERED: FURO80TA87 PO (10:11)
[2021-02-11] MEDS ORDERED: BRIM5DRO16 LEFTEYE (10:11)
[2021-02-11] MEDS ORDERED: BUPR150T8 PO (10:11)
[2021-02-11] MEDS ORDERED: [UNRECOGNIZED DRUG - CODE] PO (10:11)
[2021-02-11] MEDS ORDERED: DEXL60CA3 PO (10:11)
[2021-02-11] MEDS ORDERED: LABE300T2 PO (10:11)
[2021-02-11] MEDS ORDERED: ACET-1013 PO (10:11)
[2021-02-11 10:16] LABS: BASOPHILS % (AUTO) 0.8 % (0-1); EOSINOPHILS # (AUTO) 0.3 X10'3 (0-0.9); EOSINOPHILS % (AUTO) 4.1 % (0-6); HEMATOCRIT 39.4 % (35.0-45.0); HEMOGLOBIN 12.3 g/dl (12.0-16.0); LYMPHOCYTES # (AUTO) 1.3 X10'3 (1.1-4.8); LYMPHOCYTES % (AUTO) 20.3 % (21-51); MEAN CORPUSCULAR HEMOGLOBIN 26.3 PG (27.0-31.0); MEAN CORPUSCULAR HGB CONC 31.2 g/dL (33.0-36.5); MEAN CORPUSCULAR VOLUME 84.1 FL (78-98); MEAN PLATELET VOLUME 9.9 FL (7.4-10.4); MONOCYTES # (AUTO) 0.9 X10'3 (0-0.9); MONOCYTES % (AUTO) 13.3 % (2-12); NEUTROPHILS % (AUTO) 61.5 % (42-75); PLATELET COUNT 194 X10'3 (140-440); RED BLOOD COUNT 4.68 X10'6 (4.20-5.60); RED CELL DISTRIBUTION WIDTH 17.7 % (11.5-14.5); WHITE BLOOD COUNT 6.5 X10'3 (4.5-11.0)
[2021-02-11] MEDS ORDERED: tPA-cathflo 2 MG/2 ml IV flush ONE (10:33)
[2021-02-11 10:47] LABS: ALBUMIN 2.8 G/DL (3.4-5.0); ANION GAP 17 (8-16); BLOOD UREA NITROGEN 13 MG/DL (7-18); BUN/CREATININE RATIO 3.3 (6.6-38.0); CALCIUM 9.5 MG/DL (8.5-10.1); CHLORIDE 99 MMOL/L (99-107); CREATININE 3.95 MG/DL (0.40-0.90); GLUCOSE 59 MG/DL (70-104); POTASSIUM 3.1 MMOL/L (3.5-5.1); SODIUM 146 MMOL/L (135-145); TOTAL CARBON DIOXIDE 29.9 MMOL/L (24-32); eGFR 12 ML/MIN
[2021-02-11 10:49] LABS: PARTIAL THROMBOPLASTIN TIME 31 SECONDS (22-32)
[2021-02-11] MEDS ORDERED: LIDOcaine 1%/PF 5ML 10 MG/ML VIAL ONE (13:26)
[2021-02-11] MEDS ORDERED: midazolam 1 mg/ML 2ml injection ONE (13:26)
[2021-02-11] MEDS ORDERED: heparin 1,000 UNITS/NS 500ml 500 ML ONE (13:27)
[2021-02-11] MEDS ORDERED: fentaNYL/PF 50MCG/1 ML 2ML syringe ONE ×2 (13:27→14:21)
[2021-02-11] MEDS ORDERED: iohexol 300mg/ml 100ml inj. ONE (13:27)
[2021-02-11] MEDS ORDERED: hydrALAZINE 20mg/ml inj. IV ONE (14:02)
[2021-02-11] MEDS ORDERED: heparin 1,000unit/ml 10ml vial 10 ML ONE (14:28)
--- NOTE | 2021-02-11 17:55 | NUR ---
Purse string and dressing D/C-no drainage noted-sterile 4X4 and tegaderm to Lt arm site
== END 2021-02-11 17:57 | disposition home or self-care (01) ==
LOC: SSTAY O 08:46
PROVIDERS: ATTEND Radiology Vascular & Interventional Radiology
DX: T82.868A Thrombosis due to vascular prosthetic devices, implants and grafts, initial encounter (principal); E11.22 Type 2 diabetes mellitus with diabetic chronic kidney disease; N18.6 End stage renal disease; Z88.0 Allergy status to penicillin; Z88.8 Allergy status to other drugs, medicaments and biological substances; Z79.01 Long term (current) use of anticoagulants; Z79.899 Other long term (current) drug therapy; Y83.2 Surgical operation with anastomosis, bypass or graft as the cause of abnormal reaction of the patient, or of later complication, without mention of misadventure at the time of the procedure; Y92.89 Other specified places as the place of occurrence of the external cause
CPT/HCPCS: 36415; 36905; 80048; 85025; 85610; 85730; 99152; 99153; C1725; C1769; C1894; J0360; J1644; J2250; J2997; J3010; Q9967

== ENCOUNTER 2021-12-27 09:02 | Inpatient (IN) | payer MEDICARE, MEDICAID ==
[~2021-12-27] VITALS: Ht 165.1 cm; Wt 72.7 kg
[~2021-12-27 09:02] MED LIST changes: +ACET-1013 PO; +ALBU8.5H17 INH; +BRIM5DRO16 LEFTEYE; +BUPR-72 PO; +BUPR150T8 PO; +CLOP75TA34 PO; +DEXL60CA3 PO; +DICY20TA2 PO; +FOLI0.4T14 PO; +FOSI40TA71 PO; +FURO80TA3 PO; +FURO80TA87 PO; +GABA300C PO; +HYDR-3972 PO; -HYDR-4353 PO; -LABE200T5 PO; +LABE300T2 PO; +METO5TAB98 PO; -MOME17SP BOTHNARES; +MOME17SP5 BOTHNARES; +NIFE90TA61 PO; +[UNRECOGNIZED DRUG - CODE] PO
[2021-12-27] MEDS ORDERED: albuterol 2.5 MG/3 ML nebule CONTNEB PRN (09:05)
[2021-12-27 09:29] LABS: BASOPHILS # (AUTO) 0.1 X10'3 (0-0.2); BASOPHILS % (AUTO) 0.9 % (0-1); EOSINOPHILS # (AUTO) 0.3 X10'3 (0-0.9); EOSINOPHILS % (AUTO) 2.3 % (0-6); HEMATOCRIT 31.4 % (35.0-45.0); HEMOGLOBIN 9.8 g/dl (12.0-16.0); LYMPHOCYTES # (AUTO) 1.7 X10'3 (1.1-4.8); LYMPHOCYTES % (AUTO) 14.2 % (21-51); MEAN CORPUSCULAR HEMOGLOBIN 27.5 PG (27.0-31.0); MEAN CORPUSCULAR HGB CONC 31.3 g/dL (33.0-36.5); MEAN CORPUSCULAR VOLUME 87.7 FL (78-98); MEAN PLATELET VOLUME 11.5 FL (7.4-10.4); MONOCYTES # (AUTO) 1.1 X10'3 (0-0.9); MONOCYTES % (AUTO) 8.9 % (2-12); NEUTROPHILS # (AUTO) 9.1 X10'3 (1.8-7.7); NEUTROPHILS % (AUTO) 73.7 % (42-75); PLATELET COUNT 168 X10'3 (140-440); RED BLOOD COUNT 3.59 X10'6 (4.20-5.60); RED CELL DISTRIBUTION WIDTH 17.4 % (11.5-14.5); WHITE BLOOD COUNT 12.3 X10'3 (4.5-11.0)
[2021-12-27 09:40] LABS: ABG BASE EXCESS 7.7 mmol/L (-2.0-2.0); ABG HCO3 34.1 mmol/L (22.0-26.0); ABG OXYGEN SATURATION 99.6 % (94-97); ABG PCO2 (T) 57.5 mmHg (32.0-45.0); ABG PO2 (T) 296.6 mmHg (75.0-100.0); ALLEN'S TEST POSITIVE; FCOHb 0.4 % (0.0-3.9); FMetHb 0.2 % (0.0-1.5); RESPIRATORY RATE 8 b/min; TIDAL VOLUME 386 mL; TOTAL HEMOGLOBIN 10.7 G/dl (12.0-16.0)
[2021-12-27 09:41] LABS: D-DIMER 1.86 MG/L FEU (0-0.50)
[2021-12-27] MEDS ORDERED: enalaprilat dihydrate 2.5mg/2ml vial IV ONE (09:50)
[2021-12-27 10:27] LABS: ANISOCYTOSIS 1+; LARGE PLATELETS MODERATE; PLATELET ESTIMATE NORMAL
[2021-12-27 10:50] LABS: ALANINE AMINOTRANSFERASE 21 U/L (12-78); ALBUMIN 3.4 G/DL (3.4-5.0); ALBUMIN/GLOBULIN RATIO 0.9 (1.1-1.5); ALKALINE PHOSPHATASE 165 IU/L (46-116); ANION GAP 7 (8-16); ASPARTATE AMINO TRANSFERASE 18 U/L (10-37); BILIRUBIN,TOTAL 0.7 MG/DL (0.1-1.0); BLOOD UREA NITROGEN 35 MG/DL (7-18); BUN/CREATININE RATIO 5.6 (6.6-38.0); CALCIUM 7.9 MG/DL (8.5-10.1); CHLORIDE 101 MMOL/L (99-107); GLUCOSE 121 MG/DL (70-104); POTASSIUM 6.7 MMOL/L (3.5-5.1); SODIUM 140 MMOL/L (135-145); TOTAL CARBON DIOXIDE 31.9 MMOL/L (24-32); TOTAL PROTEIN 7.3 G/DL (6.4-8.2); eGFR 7 ML/MIN
[2021-12-27] MEDS ORDERED: dextrose 50%-water 50ml dispensing syringe IV ONE (11:30)
[2021-12-27] MEDS ORDERED: insulin regular, human 10 units/0.1 ml syringe IV ONE (11:30)
--- NOTE | 2021-12-27 11:31 | NUR ---
dr lala made aware of potassium 6.7. no new orders at this time.
[2021-12-27] MEDS: nitroGLYCERIN 0.4mg SUBLingual tab SL PRN ×3 (11:43→12:16)
[2021-12-27] MEDS ORDERED: normal saline 1000ml 250 ML IV PRN (11:50)
[2021-12-27] MEDS ORDERED: heparin 1,000 units/ml 10ml inj IV ONE (11:50)
[2021-12-27] MEDS ORDERED: EPOETIN ALFA-EPBX 20,000 UNIT/ML 1 ML MDV IV ONE (11:50)
[2021-12-27] MEDS ORDERED: LIDOcaine 1% (10mg/ml) 2ml vial SQ ONE (11:50)
--- NOTE | 2021-12-27 12:32 | NUR ---
chest pain resolved after 3 nitros given at bedside q 5 min
--- NOTE | 2021-12-27 14:37 | NUR ---
pt comlaining of chest pain onset 4725. md taylor aware. suggested repeat ekg and continue to monitor pt at this time. no new other orders at this time
[2021-12-27] MEDS ORDERED: nitroGLYCERIN 1gm ointment UD TP ONE (14:55)
[2021-12-27] MEDS ORDERED: CLON-418 PO (15:17)
[2021-12-27] MEDS ORDERED: BECL7.3A7 IH (15:17)
[2021-12-27] MEDS ORDERED: FOLI0.8T7 PO (15:17)
[2021-12-27] MEDS ORDERED: FLUT16SP20 BOTHNARES (15:17)
[2021-12-27] MEDS ORDERED: FOLI0.4T14 PO (15:17)
[2021-12-27] MEDS ORDERED: LACT1CAP65 PO (15:17)
[2021-12-27] MEDS ORDERED: BIMA2.5D LEFTEYE (15:17)
[2021-12-27] MEDS ORDERED: LABE200T5 PO (15:17)
[2021-12-27] MEDS ORDERED: CETI-90 PO (15:17)
[2021-12-27] MEDS ORDERED: HYDR-4069 PO (15:17)
[2021-12-27] MEDS ORDERED: TRIA15OI9 TOP (15:17)
[2021-12-27] MEDS ORDERED: DEXL60CA3 PO (15:17)
[2021-12-27] MEDS ORDERED: nitroGLYCERIN-Tridil 50MG/D5W 250 ML IV PRN (15:25)
--- NOTE | 2021-12-27 15:26 | NUR ---
jw notified regarding pt pressure of 207/95. verbal order of nitro drip titrate to 60
[2021-12-27] MEDS ORDERED: hydrALAZINE 20mg/ml inj. IV ONE (15:40)
[2021-12-27] MEDS ORDERED: acetaminophen 325mg tablet PO PRN (16:00)
[2021-12-27] MEDS ORDERED: mag hydrox/Alum hydrox/simeth 30ml oral suspension PO PRN (16:00)
[2021-12-27] MEDS ORDERED: hydrALAZINE 20mg/ml inj. IV PRN (16:00)
[2021-12-27] MEDS ORDERED: ondansetron/PF 4mg/2ml inj IV PRN (16:00)
[2021-12-27] MEDS ORDERED: magnesium hydroxide 30ml (MOM) UD suspension PO PRN (16:00)
[2021-12-27] MEDS ORDERED: loperamide 2mg capsule PO PRN (16:05)
[2021-12-27 17:15] VITALS: BP 196/82
[2021-12-27] MEDS: sevelamer carbonate 800mg tablet PO SCH (18:00)
--- NOTE | 2021-12-27 18:21 | NUR ---
Problems reprioritized. Patient report given, questions answered & plan of care reviewed with Tamie.
--- NOTE | 2021-12-27 19:00 | NUR ---
New admit received in bed getting dialysis. pt is on BIPAP saturating at 100%. Nitroglycerin drips infusing at 5mcg/min infusing well. Elevated BP reported by dialysis nurse; will medicate pt soon.
[2021-12-27] MEDS: furosemide 40mg tablet PO SCH (19:32)
[2021-12-27] MEDS: cloNIDine 0.1 mg tablet PO SCH (19:32)
[2021-12-27] MEDS: HYDROcodone/acetaminophen 10/325mg tab PO PRN (19:33)
[2021-12-27] MEDS: docusate sod 100mg capsule PO SCH (20:00)
[2021-12-27] MEDS: buPROPion SR 150mg tablet PO SCH (20:00)
[2021-12-27] MEDS: heparin, porcine 5000 units/ml vial SQ SCH (20:00)
[2021-12-27] MEDS ORDERED: TRIAMCINOLONE ACETONIDE TOP SCH (20:00)
[2021-12-27] MEDS: insulin glargine (Lantus) pen - multi-dose SQ SCH (21:00)
--- NOTE | 2021-12-27 21:05 | NUR ---
Dr White notified of troponin level of 474 , no further order given. Clonidine 0.1 mg time once ordered for BP 214/83 while pt is on dialysis
[2021-12-27] MEDS ORDERED: cloNIDine 0.1 mg tablet PO ONE (21:15)
[2021-12-27] MEDS: atorvastatin 20mg tablet PO SCH (21:53)
[2021-12-27] MEDS: gabapentin 300mg capsule PO SCH (21:55)
[2021-12-27 22:00] VITALS: BP 202/89
[2021-12-27 22:45] VITALS: BP 116/76
[2021-12-27] MEDS ORDERED: LORazepam 2 mg/ml vial IV PRN (22:50)
[2021-12-27] MEDS ORDERED: HYDROcodone/acetaminophen 10/325mg tab PO ONE (23:45)
[2021-12-27] MEDS: hydrALAZINE 25 MG tablet PO SCH (23:52)
[2021-12-27] MEDS: labetalol 100mg tablet PO SCH (23:53)
[2021-12-27 23:56] VITALS: BP 117/71
[2021-12-28] MEDS: brimonidine 0.2% 5 ML ophthalmic drops LEFTEYE SCH ×4 (00:02→20:25)
[2021-12-28] MEDS: latanoprost 0.005% 2.5ml ophthalmic drops LEFTEYE SCH ×2 (00:03→20:25)
[2021-12-28 02:00] VITALS: BP 150/68
[2021-12-28] MEDS: cloNIDine 0.1 mg tablet PO SCH ×4 (03:01→20:23)
[2021-12-28 06:00] VITALS: BP 157/59
--- NOTE | 2021-12-28 06:03 | NUR ---
Pt medicated for pain all over her body and elevated BP; continue to monitor pt vitals.
--- NOTE | 2021-12-28 06:59 | NUR ---
Pt's home medication took to pharmacy; copy in chart
[2021-12-28 07:03] LABS: BASOPHILS % (AUTO) 0.3 % (0-1); EOSINOPHILS % (AUTO) 0.3 % (0-6); HEMATOCRIT 25.8 % (35.0-45.0); HEMOGLOBIN 8.3 g/dl (12.0-16.0); LYMPHOCYTES # (AUTO) 1.1 X10'3 (1.1-4.8); LYMPHOCYTES % (AUTO) 16.4 % (21-51); MEAN CORPUSCULAR HGB CONC 32.1 g/dL (33.0-36.5); MEAN CORPUSCULAR VOLUME 87.2 FL (78-98); MEAN PLATELET VOLUME 11.4 FL (7.4-10.4); MONOCYTES # (AUTO) 0.8 X10'3 (0-0.9); MONOCYTES % (AUTO) 12.4 % (2-12); NEUTROPHILS # (AUTO) 4.6 X10'3 (1.8-7.7); NEUTROPHILS % (AUTO) 70.6 % (42-75); PLATELET COUNT 118 X10'3 (140-440); RED BLOOD COUNT 2.96 X10'6 (4.20-5.60); RED CELL DISTRIBUTION WIDTH 18.4 % (11.5-14.5); WHITE BLOOD COUNT 6.6 X10'3 (4.5-11.0)
[2021-12-28 07:20] LABS: ALBUMIN 2.8 G/DL (3.4-5.0); ANION GAP 13 (8-16); BLOOD UREA NITROGEN 19 MG/DL (7-18); CALCIUM 8.4 MG/DL (8.5-10.1); CHLORIDE 101 MMOL/L (99-107); CREATININE 3.79 MG/DL (0.40-0.90); GLUCOSE 59 MG/DL (70-104); POTASSIUM 5.3 MMOL/L (3.5-5.1); SODIUM 141 MMOL/L (135-145); TOTAL CARBON DIOXIDE 27.5 MMOL/L (24-32); eGFR 12 ML/MIN
[2021-12-28] MEDS ORDERED: cetirizine 10mg tablet PO SCH ×2 (08:00→13:44)
[2021-12-28] MEDS: heparin, porcine 5000 units/ml vial SQ SCH ×2 (08:00→20:24)
[2021-12-28] MEDS: linagliptin 5mg tablet PO SCH (08:10)
[2021-12-28] MEDS: lactobacillus rhamnosus 10,000 MMU CELLS/CAPSULE PO SCH (08:10)
[2021-12-28] MEDS: folic acid/vitamin B complex w/vitamin C 0.8mg tablet PO SCH (08:11)
[2021-12-28] MEDS: labetalol 100mg tablet PO SCH ×2 (08:11→20:24)
[2021-12-28] MEDS: furosemide 40mg tablet PO SCH ×2 (08:12→20:24)
[2021-12-28] MEDS: pantoprazole 40mg Tablet.DR PO SCH (08:13)
[2021-12-28] MEDS: folic acid 1mg tablet PO SCH (08:13)
[2021-12-28] MEDS: hydrALAZINE 25 MG tablet PO SCH ×2 (08:14→16:16)
[2021-12-28] MEDS: buPROPion SR 150mg tablet PO SCH ×2 (08:15→20:24)
[2021-12-28] MEDS: NIFEdipine XL 30mg tablet PO SCH (08:21)
[2021-12-28] MEDS: sevelamer carbonate 800mg tablet PO SCH ×3 (08:26→18:32)
[2021-12-28] MEDS: docusate sod 100mg capsule PO SCH (08:28)
[2021-12-28] MEDS: budesonide 0.5mg/2ml UD nebule IH SCH ×2 (09:09→20:04)
[2021-12-28] MEDS: levalbuterol 0.63mg/3ml nebule IH PRN ×2 (09:10→20:04)
[2021-12-28 11:44] LABS: ANISOCYTOSIS 2+; LARGE PLATELETS MODERATE; PLATELET ESTIMATE DECREASED
[2021-12-28 15:00] VITALS: BP 127/53
[2021-12-28 18:00] VITALS: BP 157/46
[2021-12-28] MEDS ORDERED: LORazepam 2 mg/ml vial IV PRN (18:20)
[2021-12-28] MEDS: gabapentin 300mg capsule PO SCH (20:25)
[2021-12-28] MEDS: atorvastatin 20mg tablet PO SCH (20:25)
[2021-12-28] MEDS: insulin glargine (Lantus) pen - multi-dose SQ SCH (21:00)
[2021-12-28 22:00] VITALS: BP 98/62
[2021-12-29] VITALS (7 sets, daily range): BP systolic 117–177; BP diastolic 49–92
[2021-12-29] MEDS: hydrALAZINE 25 MG tablet PO SCH ×4 (00:29→23:59)
[2021-12-29] MEDS: cloNIDine 0.1 mg tablet PO SCH ×5 (02:14→20:49)
[2021-12-29 07:15] LABS: BASOPHILS % (AUTO) 0.8 % (0-1); EOSINOPHILS # (AUTO) 0.1 X10'3 (0-0.9); EOSINOPHILS % (AUTO) 2.5 % (0-6); HEMATOCRIT 24.8 % (35.0-45.0); LYMPHOCYTES # (AUTO) 1.1 X10'3 (1.1-4.8); MEAN CORPUSCULAR HEMOGLOBIN 28.1 PG (27.0-31.0); MEAN CORPUSCULAR HGB CONC 32.1 g/dL (33.0-36.5); MEAN CORPUSCULAR VOLUME 87.7 FL (78-98); MEAN PLATELET VOLUME 10.7 FL (7.4-10.4); MONOCYTES # (AUTO) 0.8 X10'3 (0-0.9); MONOCYTES % (AUTO) 17.6 % (2-12); NEUTROPHILS # (AUTO) 2.6 X10'3 (1.8-7.7); NEUTROPHILS % (AUTO) 55.1 % (42-75); PLATELET COUNT 113 X10'3 (140-440); RED BLOOD COUNT 2.83 X10'6 (4.20-5.60); RED CELL DISTRIBUTION WIDTH 18.3 % (11.5-14.5); WHITE BLOOD COUNT 4.7 X10'3 (4.5-11.0)
[2021-12-29 07:31] LABS: ALBUMIN 2.6 G/DL (3.4-5.0); ANION GAP 10 (8-16); BLOOD UREA NITROGEN 29 MG/DL (7-18); BUN/CREATININE RATIO 5.4 (6.6-38.0); CALCIUM 7.5 MG/DL (8.5-10.1); CHLORIDE 101 MMOL/L (99-107); CREATININE 5.42 MG/DL (0.40-0.90); GLUCOSE 80 MG/DL (70-104); POTASSIUM 5.3 MMOL/L (3.5-5.1); SODIUM 140 MMOL/L (135-145); TOTAL CARBON DIOXIDE 29.5 MMOL/L (24-32); eGFR 8 ML/MIN
[2021-12-29] MEDS: budesonide 0.5mg/2ml UD nebule IH SCH ×2 (07:49→20:14)
[2021-12-29] MEDS: furosemide 40mg tablet PO SCH ×2 (07:52→20:50)
[2021-12-29] MEDS: folic acid 1mg tablet PO SCH (07:52)
[2021-12-29] MEDS: pantoprazole 40mg Tablet.DR PO SCH (07:53)
[2021-12-29] MEDS: NIFEdipine XL 30mg tablet PO SCH (07:54)
[2021-12-29] MEDS: buPROPion SR 150mg tablet PO SCH ×2 (07:54→20:49)
[2021-12-29] MEDS: folic acid/vitamin B complex w/vitamin C 0.8mg tablet PO SCH (07:54)
[2021-12-29] MEDS: labetalol 100mg tablet PO SCH ×2 (07:54→20:48)
[2021-12-29 07:55] LABS: PLATELET ESTIMATE DECREASED; TOTAL CELLS COUNTED 100
[2021-12-29] MEDS: lactobacillus rhamnosus 10,000 MMU CELLS/CAPSULE PO SCH (07:55)
[2021-12-29] MEDS: linagliptin 5mg tablet PO SCH (07:55)
[2021-12-29 07:56] LABS: ANISOCYTOSIS 2+; LARGE PLATELETS FEW
[2021-12-29 07:57] LABS: HYPOCHROMASIA 1+
[2021-12-29] MEDS: heparin, porcine 5000 units/ml vial SQ SCH ×2 (07:58→20:00)
[2021-12-29] MEDS: sevelamer carbonate 800mg tablet PO SCH ×3 (07:59→17:19)
[2021-12-29] MEDS: brimonidine 0.2% 5 ML ophthalmic drops LEFTEYE SCH ×3 (08:00→21:00)
[2021-12-29] MEDS ORDERED: EPOETIN ALFA-EPBX 20,000 UNIT/ML 1 ML MDV IV ONE (08:00)
[2021-12-29] MEDS ORDERED: heparin 1,000 units/ml 10ml inj IV ONE (08:00)
[2021-12-29] MEDS ORDERED: LIDOcaine 1% (10mg/ml) 2ml vial SQ ONE (08:00)
[2021-12-29] MEDS ORDERED: albumin (human) 25% 100ml IV 100 ML IV PRN (08:00)
[2021-12-29] MEDS ORDERED: heparin 1,000unit/ml 10ml vial 10 ML IV ONE (08:00)
[2021-12-29] MEDS: HYDROcodone/acetaminophen 10/325mg tab PO PRN ×3 (11:09→17:14)
[2021-12-29 11:31] LABS: HBSAG SCREEN Negative (Negative)
[2021-12-29] MEDS ORDERED: DIPH1TAB29 (14:46)
[2021-12-29] MEDS ORDERED: ONDA-103 PO (14:47)
[2021-12-29 15:48] LABS: HEMOGLOBIN A1C 5.1 % (4.5-6.2)
--- NOTE | 2021-12-29 19:06 | NUR ---
Patient in room PCU 3014. I have received report from EDISON RN and had the opportunity to ask questions and assume patient care.
[2021-12-29] MEDS: atorvastatin 20mg tablet PO SCH (20:49)
[2021-12-29] MEDS: gabapentin 300mg capsule PO SCH (20:49)
[2021-12-29] MEDS: insulin glargine (Lantus) pen - multi-dose SQ SCH (21:00)
[2021-12-29] MEDS: latanoprost 0.005% 2.5ml ophthalmic drops LEFTEYE SCH (21:00)
[2021-12-30] MEDS: cloNIDine 0.1 mg tablet PO SCH ×2 (01:43→09:20)
[2021-12-30 02:00] VITALS: BP 146/86
[2021-12-30 06:00] VITALS: BP 186/57
--- NOTE | 2021-12-30 06:21 | NUR ---
Problems reprioritized. Patient report given, questions answered & plan of care reviewed with Subha SANCHEZ.
[2021-12-30 06:36] LABS: BASOPHILS % (AUTO) 0.9 % (0-1); EOSINOPHILS # (AUTO) 0.1 X10'3 (0-0.9); EOSINOPHILS % (AUTO) 2.7 % (0-6); HEMATOCRIT 27.2 % (35.0-45.0); HEMOGLOBIN 8.7 g/dl (12.0-16.0); LYMPHOCYTES % (AUTO) 20.1 % (21-51); MEAN CORPUSCULAR HEMOGLOBIN 28.1 PG (27.0-31.0); MEAN CORPUSCULAR HGB CONC 32.1 g/dL (33.0-36.5); MEAN CORPUSCULAR VOLUME 87.5 FL (78-98); MONOCYTES # (AUTO) 0.9 X10'3 (0-0.9); MONOCYTES % (AUTO) 19.7 % (2-12); NEUTROPHILS # (AUTO) 2.7 X10'3 (1.8-7.7); NEUTROPHILS % (AUTO) 56.6 % (42-75); PLATELET COUNT 127 X10'3 (140-440); RED BLOOD COUNT 3.11 X10'6 (4.20-5.60); RED CELL DISTRIBUTION WIDTH 17.7 % (11.5-14.5); WHITE BLOOD COUNT 4.7 X10'3 (4.5-11.0)
[2021-12-30 07:04] LABS: ALBUMIN 2.7 G/DL (3.4-5.0); ANION GAP 7 (8-16); BLOOD UREA NITROGEN 18 MG/DL (7-18); BUN/CREATININE RATIO 4.4 (6.6-38.0); CALCIUM 8.1 MG/DL (8.5-10.1); CHLORIDE 103 MMOL/L (99-107); CREATININE 4.05 MG/DL (0.40-0.90); GLUCOSE 125 MG/DL (70-104); POTASSIUM 4.2 MMOL/L (3.5-5.1); SODIUM 139 MMOL/L (135-145); TOTAL CARBON DIOXIDE 28.8 MMOL/L (24-32); eGFR 11 ML/MIN
--- NOTE | 2021-12-30 07:04 | NUR ---
Diabetes consult: Noted pt w/ hx of DM, A1c 5.1 Well controlled, DM ed not indicated at this time. Addendum: 12/30/21 at [address] Amended: Links added.
[2021-12-30] MEDS: brimonidine 0.2% 5 ML ophthalmic drops LEFTEYE SCH (08:00)
[2021-12-30 08:11] LABS: ANISOCYTOSIS 1+; HYPOCHROMASIA 1+; LARGE PLATELETS FEW; PLATELET ESTIMATE DECREASED; TOTAL CELLS COUNTED 100
[2021-12-30 08:12] LABS: POIKILOCYTOSIS FEW
[2021-12-30] MEDS: budesonide 0.5mg/2ml UD nebule IH SCH (08:17)
[2021-12-30] MEDS: atorvastatin 20mg tablet PO SCH (09:19)
[2021-12-30] MEDS: lactobacillus rhamnosus 10,000 MMU CELLS/CAPSULE PO SCH (09:20)
[2021-12-30] MEDS: gabapentin 300mg capsule PO SCH (09:20)
[2021-12-30] MEDS: folic acid 1mg tablet PO SCH (09:20)
[2021-12-30] MEDS: furosemide 40mg tablet PO SCH (09:21)
[2021-12-30] MEDS: labetalol 100mg tablet PO SCH (09:22)
[2021-12-30] MEDS: linagliptin 5mg tablet PO SCH (09:22)
[2021-12-30] MEDS: buPROPion SR 150mg tablet PO SCH (09:22)
[2021-12-30] MEDS: hydrALAZINE 25 MG tablet PO SCH (09:22)
[2021-12-30] MEDS: folic acid/vitamin B complex w/vitamin C 0.8mg tablet PO SCH (09:22)
[2021-12-30] MEDS: sevelamer carbonate 800mg tablet PO SCH (09:23)
[2021-12-30] MEDS: heparin, porcine 5000 units/ml vial SQ SCH (09:26)
[2021-12-30] MEDS: NIFEdipine XL 30mg tablet PO SCH (09:32)
[2021-12-30] MEDS: pantoprazole 40mg Tablet.DR PO SCH (09:32)
[2021-12-30 11:00] VITALS: BP 122/43
--- NOTE | 2021-12-30 15:35 | NUR ---
Pt. provided with discharge instructions. No further questions. Left the unit at 1530
== END 2021-12-30 15:41 | disposition home or self-care (01) | DRG 640 ==
LOC: ER 09:03 → ED HOLD 15:59 → PCU 3S 17:05
PROVIDERS: ADMIT Family Medicine; ATTEND Family Medicine
PROC: 5A09357 Assistance with Respiratory Ventilation, Less than 24 Consecutive Hours, Continuous Positive Airway Pressure (ICD-10-PCS; principal; 2021-12-27)
PROC: 5A1D70Z Performance of Urinary Filtration, Intermittent, Less than 6 Hours Per Day (ICD-10-PCS; 2021-12-27)
PROC: 5A09357 Assistance with Respiratory Ventilation, Less than 24 Consecutive Hours, Continuous Positive Airway Pressure (ICD-10-PCS; 2021-12-28)
PROC: 5A09357 Assistance with Respiratory Ventilation, Less than 24 Consecutive Hours, Continuous Positive Airway Pressure (ICD-10-PCS; 2021-12-29)
PROC: 5A1D70Z Performance of Urinary Filtration, Intermittent, Less than 6 Hours Per Day (ICD-10-PCS; 2021-12-29)
PROC: 5A09357 Assistance with Respiratory Ventilation, Less than 24 Consecutive Hours, Continuous Positive Airway Pressure (ICD-10-PCS; 2021-12-30)
DX: E87.70 Fluid overload, unspecified (principal); G93.41 Metabolic encephalopathy; J96.01 Acute respiratory failure with hypoxia; N18.6 End stage renal disease; I12.0 Hypertensive chronic kidney disease with stage 5 chronic kidney disease or end stage renal disease; I24.8 Other forms of acute ischemic heart disease; J81.1 Chronic pulmonary edema; N17.9 Acute kidney failure, unspecified; Z20.822 Contact with and (suspected) exposure to COVID-19; D69.6 Thrombocytopenia, unspecified; D64.9 Anemia, unspecified; F32.A Depression, unspecified; G43.909 Migraine, unspecified, not intractable, without status migrainosus; E66.9 Obesity, unspecified; K21.9 Gastro-esophageal reflux disease without esophagitis; E11.22 Type 2 diabetes mellitus with diabetic chronic kidney disease; E78.5 Hyperlipidemia, unspecified; E87.5 Hyperkalemia; G89.4 Chronic pain syndrome; I25.10 Atherosclerotic heart disease of native coronary artery without angina pectoris; J45.909 Unspecified asthma, uncomplicated; Z99.2 Dependence on renal dialysis; Z82.49 Family history of ischemic heart disease and other diseases of the circulatory system; Z83.3 Family history of diabetes mellitus; Z88.0 Allergy status to penicillin; Z88.8 Allergy status to other drugs, medicaments and biological substances; Z98.51 Tubal ligation status; Z79.899 Other long term (current) drug therapy; Z68.26 Body mass index [BMI] 26.0-26.9, adult
CPT/HCPCS: 36415; 36600; 71045; 80048; 80053; 82803; 82948; 83036; 83605; 83880; 84484; 85007; 85008; 85018; 85025; 85379; 87081; 87340; 87635; 93005; 93306; 94640; 94660; 94760; 94799; 96374; 96375; 99285; C9803; G0257; G0378; J0360; J1644; J1815; J2060; J2405; J3490; J7614; Q4081

== ENCOUNTER 2022-03-07 08:46 | Emergency (ER) | payer MEDICARE, MEDICAID ==
[~2022-03-07] VITALS: Ht 160 cm; Wt 95.0 kg
[~2022-03-07 08:46] MED LIST changes: -ACET-1013 PO; -ALBU8.5H17 INH; -APIX2.5T PO; +BECL7.3A7 IH; +BIMA2.5D LEFTEYE; -BRIM5DRO16 LEFTEYE; -BUPR150T8 PO; +CETI-90 PO; +CLON-418 PO; -CLOP75TA15 PO; -CLOP75TA34 PO; -DICY20TA2 PO; +FLUT16SP20 BOTHNARES; -FOLI0.8T3 PO; -FOSI40TA71 PO; -FURO80TA3 PO; -GABA-532 PO; +HYDR-4069 PO; +LABE200T5 PO; -LABE300T2 PO; +LACT1CAP65 PO; -LEVA0.6319 NEB; -LISI40TA13 PO; -MOME17SP5 BOTHNARES; -NIFE-33 PO; +ONDA-103 PO; +TRIA15OI9 TOP; -[UNRECOGNIZED DRUG - CODE] PO
[2022-03-07 09:41] LABS: BASOPHILS # (AUTO) 0.1 X10'3 (0-0.2); BASOPHILS % (AUTO) 1.7 % (0-1); EOSINOPHILS # (AUTO) 0.1 X10'3 (0-0.9); EOSINOPHILS % (AUTO) 2.9 % (0-6); HEMOGLOBIN 9.4 g/dl (12.0-16.0); LYMPHOCYTES # (AUTO) 0.7 X10'3 (1.1-4.8); LYMPHOCYTES % (AUTO) 17.7 % (21-51); MEAN CORPUSCULAR HEMOGLOBIN 28.7 PG (27.0-31.0); MEAN CORPUSCULAR HGB CONC 31.3 g/dL (33.0-36.5); MEAN CORPUSCULAR VOLUME 91.6 FL (78-98); MEAN PLATELET VOLUME 10.2 FL (7.4-10.4); MONOCYTES # (AUTO) 0.5 X10'3 (0-0.9); MONOCYTES % (AUTO) 11.7 % (2-12); NEUTROPHILS # (AUTO) 2.6 X10'3 (1.8-7.7); PLATELET COUNT 135 X10'3 (140-440); RED BLOOD COUNT 3.28 X10'6 (4.20-5.60); RED CELL DISTRIBUTION WIDTH 17.3 % (11.5-14.5); WHITE BLOOD COUNT 3.9 X10'3 (4.5-11.0)
--- NOTE | 2022-03-07 09:51 | NUR ---
Pt just verbalized that she is c/o chest pressure that started shortly after arrival. Pt states pain is 7/10, feels like pressure, denies dizziness, nausea, vomiting, etc. Worse when she takes a deep breath. MD notified.
[2022-03-07] MEDS ORDERED: ringers solution, lacted 1,000 ML IV ONE (10:05)
[2022-03-07 10:11] LABS: ALANINE AMINOTRANSFERASE 16 U/L (12-78); ALBUMIN 3.1 G/DL (3.4-5.0); ANION GAP 6 (8-16); ASPARTATE AMINO TRANSFERASE 14 U/L (10-37); BILIRUBIN,TOTAL 0.4 MG/DL (0.1-1.0); BLOOD UREA NITROGEN 46 MG/DL (7-18); CALCIUM 7.7 MG/DL (8.5-10.1); CHLORIDE 99 MMOL/L (99-107); CREATININE 6.57 MG/DL (0.40-0.90); GLUCOSE 79 MG/DL (70-104); POTASSIUM 5.6 MMOL/L (3.5-5.1); SODIUM 136 MMOL/L (135-145); TOTAL CARBON DIOXIDE 31.3 MMOL/L (24-32); eGFR 6 ML/MIN
[2022-03-07 10:20] LABS: ALBUMIN/GLOBULIN RATIO 0.9 (1.1-1.5); TOTAL PROTEIN 6.5 G/DL (6.4-8.2)
[2022-03-07 10:21] LABS: ALKALINE PHOSPHATASE 112 IU/L (46-116)
--- NOTE | 2022-03-07 11:00 | NUR ---
No change in pt status. MD roberts.
[2022-03-07] MEDS ORDERED: LORazepam 2 mg/ml vial IV ONE (11:20)
[2022-03-07] MEDS ORDERED: albuterol 2.5 MG/3 ML nebule NEB ONE (11:20)
--- NOTE | 2022-03-07 12:00 | NUR ---
RT states no change after breathing tx. Thinks that the breathing treatment made it worse. States lungs are full of fluid. notified.
--- NOTE | 2022-03-07 12:35 | NUR ---
Pt states she feels like she needs dialysis. She was due to be hooked up at 11am today. notified.
[2022-03-07 13:55] VITALS: BP 207/69
== END 2022-03-07 13:00 | disposition home or self-care (01) ==
LOC: ER 08:46
DX: R51.9 Headache, unspecified (principal); R07.9 Chest pain, unspecified; R53.1 Weakness; I12.9 Hypertensive chronic kidney disease with stage 1 through stage 4 chronic kidney disease, or unspecified chronic kidney disease; E11.22 Type 2 diabetes mellitus with diabetic chronic kidney disease; N18.9 Chronic kidney disease, unspecified; F32.9 Major depressive disorder, single episode, unspecified; Z87.81 Personal history of (healed) traumatic fracture; G43.909 Migraine, unspecified, not intractable, without status migrainosus; Z88.0 Allergy status to penicillin; Z88.8 Allergy status to other drugs, medicaments and biological substances; Z79.899 Other long term (current) drug therapy
CPT/HCPCS: 36415; 80053; 84484; 85025; 93005; 94640; 96361; 96374; 99285; J2060; J7120

== ENCOUNTER 2022-04-01 15:26 | Emergency (ER) | payer MEDICARE, MEDICAID ==
[~2022-04-01] VITALS: Ht 160 cm; Wt 68.2 kg
[2022-04-01 15:57] VITALS: BP 165/46
[2022-04-01 16:52] LABS: BASOPHILS # (AUTO) 0.1 X10'3 (0-0.2); BASOPHILS % (AUTO) 0.5 % (0-1); EOSINOPHILS # (AUTO) 0.1 X10'3 (0-0.9); EOSINOPHILS % (AUTO) 0.9 % (0-6); HEMATOCRIT 35.1 % (35.0-45.0); HEMOGLOBIN 11.1 g/dl (12.0-16.0); LYMPHOCYTES % (AUTO) 10.2 % (21-51); MEAN CORPUSCULAR HEMOGLOBIN 27.5 PG (27.0-31.0); MEAN CORPUSCULAR HGB CONC 31.7 g/dL (33.0-36.5); MEAN CORPUSCULAR VOLUME 86.8 FL (78-98); MONOCYTES # (AUTO) 1.1 X10'3 (0-0.9); MONOCYTES % (AUTO) 10.9 % (2-12); NEUTROPHILS # (AUTO) 7.6 X10'3 (1.8-7.7); NEUTROPHILS % (AUTO) 77.5 % (42-75); PLATELET COUNT 184 X10'3 (140-440); RED BLOOD COUNT 4.05 X10'6 (4.20-5.60); RED CELL DISTRIBUTION WIDTH 16.1 % (11.5-14.5); WHITE BLOOD COUNT 9.9 X10'3 (4.5-11.0)
[2022-04-01 17:07] LABS: ALANINE AMINOTRANSFERASE 11 U/L (12-78); ALBUMIN 2.9 G/DL (3.4-5.0); ALBUMIN/GLOBULIN RATIO 0.7 (1.1-1.5); ALKALINE PHOSPHATASE 126 IU/L (46-116); ANION GAP 3 (8-16); ASPARTATE AMINO TRANSFERASE 11 U/L (10-37); BILIRUBIN,TOTAL 0.6 MG/DL (0.1-1.0); BLOOD UREA NITROGEN 16 MG/DL (7-18); BUN/CREATININE RATIO 7.2 (6.6-38.0); CALCIUM 8.3 MG/DL (8.5-10.1); CHLORIDE 99 MMOL/L (99-107); CREATININE 2.23 MG/DL (0.40-0.90); GLUCOSE 144 MG/DL (70-104); LIPASE < 50 U/L (73-393); POTASSIUM 3.4 MMOL/L (3.5-5.1); SODIUM 139 MMOL/L (135-145); TOTAL CARBON DIOXIDE 37.2 MMOL/L (24-32); TOTAL PROTEIN 7.1 G/DL (6.4-8.2); eGFR 22 ML/MIN
== END 2022-04-01 21:31 | disposition left against medical advice (07) ==
LOC: ER 15:27
DX: R10.9 Unspecified abdominal pain (principal); Z53.21 Procedure and treatment not carried out due to patient leaving prior to being seen by health care provider
CPT/HCPCS: 80053; 83690; 85025

== ENCOUNTER 2022-07-07 14:39 | Emergency (ER) | payer MEDICARE, MEDICAID ==
[~2022-07-07] VITALS: Ht 160 cm; Wt 69.1 kg
[~2022-07-07 14:39] MED LIST changes: -BIMA2.5D LEFTEYE; +BIMA2.5D OP; -LABE200T5 PO; +LABE200T8 PO
--- NOTE | 2022-07-07 17:18 | NUR ---
dr. fletcher at bedside.
[2022-07-07] MEDS ORDERED: proCHLORperazine 10 MG/2 ml inj IV ONE (17:25)
[2022-07-07] MEDS ORDERED: diphenhydrAMINE 50 mg/ml inj IV ONE (17:25)
[2022-07-07 17:28] LABS: BASOPHILS % (AUTO) 0.8 % (0-1); EOSINOPHILS % (AUTO) 0.7 % (0-6); HEMATOCRIT 27.5 % (35.0-45.0); HEMOGLOBIN 8.8 g/dl (12.0-16.0); LYMPHOCYTES # (AUTO) 0.4 X10'3 (1.1-4.8); LYMPHOCYTES % (AUTO) 6.8 % (21-51); MEAN CORPUSCULAR HEMOGLOBIN 27.4 PG (27.0-31.0); MEAN CORPUSCULAR HGB CONC 32.1 g/dL (33.0-36.5); MEAN CORPUSCULAR VOLUME 85.4 FL (78-98); MEAN PLATELET VOLUME 10.7 FL (7.4-10.4); MONOCYTES # (AUTO) 0.8 X10'3 (0-0.9); MONOCYTES % (AUTO) 12.5 % (2-12); NEUTROPHILS % (AUTO) 79.2 % (42-75); PLATELET COUNT 212 X10'3 (140-440); RED BLOOD COUNT 3.21 X10'6 (4.20-5.60); RED CELL DISTRIBUTION WIDTH 15.8 % (11.5-14.5); WHITE BLOOD COUNT 6.4 X10'3 (4.5-11.0)
[2022-07-07 17:48] LABS: ALANINE AMINOTRANSFERASE 16 U/L (12-78); ALBUMIN 2.8 G/DL (3.4-5.0); ALBUMIN/GLOBULIN RATIO 0.7 (1.1-1.5); ALKALINE PHOSPHATASE 134 IU/L (46-116); ASPARTATE AMINO TRANSFERASE 15 U/L (10-37); BILIRUBIN,TOTAL 0.5 MG/DL (0.1-1.0); BLOOD UREA NITROGEN 30 MG/DL (7-18); BUN/CREATININE RATIO 7.8 (6.6-38.0); CALCIUM 8.3 MG/DL (8.5-10.1); CHLORIDE 98 MMOL/L (99-107); CREATININE 3.86 MG/DL (0.40-0.90); GLUCOSE 88 MG/DL (70-104); POTASSIUM 3.9 MMOL/L (3.5-5.1); SODIUM 140 MMOL/L (135-145); TOTAL PROTEIN 6.7 G/DL (6.4-8.2); eGFR 12 ML/MIN
[2022-07-07 17:53] LABS: ANION GAP 8 (8-16); TOTAL CARBON DIOXIDE 33.7 MMOL/L (24-32)
[2022-07-07 18:07] LABS: PLATELET ESTIMATE NORMAL
[2022-07-07 18:08] LABS: HYPOCHROMASIA 2+; LARGE PLATELETS FEW
[2022-07-07 18:09] LABS: POIKILOCYTOSIS 1+
[2022-07-07 18:12] LABS: ANISOCYTOSIS 1+
[2022-07-07] MEDS ORDERED: HYDR100T27 PO (18:58)
[2022-07-07] MEDS ORDERED: ONDA4TAB12 PO (18:59)
[2022-07-07 19:00] VITALS: BP 139/60
[2022-07-07] MEDS ORDERED: FLUT12AE21 INH (19:01)
[2022-07-07] MEDS ORDERED: DOXA2TAB2 PO (19:02)
[2022-07-07] MEDS ORDERED: CLOP75TA33 PO (19:03)
[2022-07-07] MEDS ORDERED: FOLI1TAB27 PO (19:06)
[2022-07-07] MEDS ORDERED: FOSI40TA71 PO (19:07)
[2022-07-07] MEDS ORDERED: CLON0.3T PO (19:11)
[2022-07-07] MEDS ORDERED: PANT40TA54 PO (19:12)
[2022-07-07] MEDS ORDERED: PNV1TABL75 PO (19:14)
[2022-07-07] MEDS ORDERED: INSU100V13 SQ (19:14)
[2022-07-07] MEDS ORDERED: VITA-268 PO (19:15)
[2022-07-07] MEDS ORDERED: BUPR150T8 PO (19:15)
[2022-07-07] MEDS ORDERED: LACT1CAP65 PO (19:16)
== END 2022-07-07 19:04 | disposition home or self-care (01) ==
LOC: ER 14:40
DX: R07.89 Other chest pain (principal); G43.909 Migraine, unspecified, not intractable, without status migrainosus; I12.0 Hypertensive chronic kidney disease with stage 5 chronic kidney disease or end stage renal disease; E11.22 Type 2 diabetes mellitus with diabetic chronic kidney disease; N18.6 End stage renal disease; F32.A Depression, unspecified; Z99.2 Dependence on renal dialysis; Z98.51 Tubal ligation status; Z98.890 Other specified postprocedural states; Z88.0 Allergy status to penicillin; Z88.1 Allergy status to other antibiotic agents; Z79.4 Long term (current) use of insulin; Z79.899 Other long term (current) drug therapy
CPT/HCPCS: 36415; 71045; 80053; 83880; 84484; 85008; 85025; 93005; 96374; 96375; 99285; J0780; J1200

== ENCOUNTER 2022-07-11 05:48 | Emergency (ER) | payer MEDICARE, MEDICAID ==
[~2022-07-11] VITALS: Ht 160 cm; Wt 66.8 kg
[~2022-07-11 05:48] MED LIST changes: -BECL7.3A7 IH; -BUPR-72 PO; +BUPR150T8 PO; -CETI-90 PO; -CLON-418 PO; +CLON0.3T PO; +CLOP75TA33 PO; -DEXL60CA3 PO; +DOXA2TAB2 PO; +FLUT12AE21 INH; -FLUT16SP20 BOTHNARES; -FOLI0.4T14 PO; -FOLI0.8T7 PO; +FOLI1TAB27 PO; +FOSI40TA71 PO; -HYDR-4069 PO; +HYDR100T27 PO; -INSU100C4 SQ; +INSU100V13 SQ; -LOPE2CAP PO; -METO5TAB98 PO; -ONDA-103 PO; +ONDA4TAB12 PO; +PANT40TA54 PO; +PNV1TABL75 PO; -TRIA15OI9 TOP; +VITA-268 PO
[2022-07-11] MEDS ORDERED: morphine 4 MG/ML inj SYRINge IV PRN (06:30)
[2022-07-11] MEDS ORDERED: ondansetron/PF 4mg/2ml inj IV ONE (06:30)
[2022-07-11 07:28] LABS: BASOPHILS % (AUTO) 0.4 % (0-1); EOSINOPHILS % (AUTO) 0.2 % (0-6); HEMATOCRIT 27.1 % (35.0-45.0); HEMOGLOBIN 8.5 g/dl (12.0-16.0); LYMPHOCYTES # (AUTO) 0.9 X10'3 (1.1-4.8); LYMPHOCYTES % (AUTO) 7.1 % (21-51); MEAN CORPUSCULAR HGB CONC 31.5 g/dL (33.0-36.5); MEAN CORPUSCULAR VOLUME 85.6 FL (78-98); MEAN PLATELET VOLUME 10.5 FL (7.4-10.4); MONOCYTES # (AUTO) 2.1 X10'3 (0-0.9); MONOCYTES % (AUTO) 17.1 % (2-12); NEUTROPHILS # (AUTO) 9.4 X10'3 (1.8-7.7); NEUTROPHILS % (AUTO) 75.2 % (42-75); PLATELET COUNT 297 X10'3 (140-440); RED BLOOD COUNT 3.17 X10'6 (4.20-5.60); RED CELL DISTRIBUTION WIDTH 15.7 % (11.5-14.5); WHITE BLOOD COUNT 12.5 X10'3 (4.5-11.0)
[2022-07-11 07:44] LABS: ANION GAP 10 (8-16); BLOOD UREA NITROGEN 69 MG/DL (7-18); BUN/CREATININE RATIO 10.7 (6.6-38.0); CHLORIDE 93 MMOL/L (99-107); CREATININE 6.47 MG/DL (0.40-0.90); GLUCOSE 148 MG/DL (70-104); POTASSIUM 4.1 MMOL/L (3.5-5.1); SODIUM 135 MMOL/L (135-145); TOTAL CARBON DIOXIDE 31.9 MMOL/L (24-32)
[2022-07-11 07:45] LABS: ALANINE AMINOTRANSFERASE 87 U/L (12-78); ALBUMIN/GLOBULIN RATIO 0.7 (1.1-1.5); ALKALINE PHOSPHATASE 129 IU/L (46-116); ASPARTATE AMINO TRANSFERASE 100 U/L (10-37); BILIRUBIN,TOTAL 0.7 MG/DL (0.1-1.0); CALCIUM 9.1 MG/DL (8.5-10.1); LIPASE 63 U/L (73-393); TOTAL PROTEIN 7.3 G/DL (6.4-8.2); eGFR 7 ML/MIN
[2022-07-11 08:19] LABS: PLATELET ESTIMATE NORMAL; TOTAL CELLS COUNTED 100
[2022-07-11] MEDS ORDERED: cloNIDine 0.1 mg tablet PO ONE (09:55)
[2022-07-11 11:36] VITALS: BP 178/98
== END 2022-07-11 11:38 | disposition home or self-care (01) ==
LOC: ER 05:48
DX: K80.20 Calculus of gallbladder without cholecystitis without obstruction (principal); R10.10 Upper abdominal pain, unspecified; R11.2 Nausea with vomiting, unspecified; M54.59 Other low back pain; I11.9 Hypertensive heart disease without heart failure; G43.909 Migraine, unspecified, not intractable, without status migrainosus; J45.909 Unspecified asthma, uncomplicated; F31.9 Bipolar disorder, unspecified; Z87.81 Personal history of (healed) traumatic fracture; Z79.899 Other long term (current) drug therapy; Z98.890 Other specified postprocedural states; Z88.0 Allergy status to penicillin; Z88.8 Allergy status to other drugs, medicaments and biological substances; Z79.84 Long term (current) use of oral hypoglycemic drugs
CPT/HCPCS: 76700; 80053; 83690; 85007; 85025; 93005; 99284; J2270; J2405